=== PATIENT | male | born 1970 | race Caucasian/White ===

== ENCOUNTER → 2016-10-03 08:37 | Outpatient (CLI) | payer MEDICAID | END | disposition home or self-care (01) | LOC: D.MRI 08:37 → EDSEX 08:37 → D.MRI 09:00 | DX: R20.9 Unspecified disturbances of skin sensation (principal) ==

== ENCOUNTER 2017-10-21 11:20 | Outpatient (CLI) | payer MEDICAID ==
[~2017-10-21] VITALS: Ht 177.8 cm; Wt 95.9 kg
--- NOTE | ~2017-10-21 | HEMODYNAMI ---
PATIENT:MICKI LUZ MEDICAL RECORD: [id number] : 70 LOCATION:[facility] ADMISSION DATE: 10/21/17 Generatedon:10/21/201714:54 Patient name: MICKI LUZ Patient #: [id number] SSN: : 1970 Date of study: 10/21/2017 Page: Of Hemodynamic Procedure Report Patient Data Patient Demographics Procedure consent was obtained First Name: MICKI Gender: Male Last Name: NATTY : 1970 Patient #: [id number] Age: 47 year(s) Race: Unknown Additional ID: [id number] Contact details [address]: [address] [place] [address] State: [place] City: [place] Zip code: [address] Past Medical History Allergies Allergen Reaction Date Comments Reported Other allergy 10/21/2017 [facility] Admission Admission Data Admission Date: 10/21/2017 Admission Time: 11:20 Weight (lbs.): 218 Weight (kg.): 98.88 Lab Results Lab Result Date: 10/21/2017 Lab Result Time: 0:00 Biochemistry Name Units Result Min Max BUN mg/dl 12 --(-*--)-- 7 18 Creatinine mg/dl 1.1 --(--*-)-- 0.6 1.3 CBC Name Units Result Min Max Hemoglobin g/dl 15.3 --(-*--)-- 13.5 17.5 Procedure Procedure Types Cath Procedure Diagnostic Procedure LHC LHC w/Coronaries Procedure Description Procedure Date Procedure Date: 10/21/2017 Procedure Start Time: 14:41 Procedure End Time: 14:52 Procedure Staff Name Function Kristofer Das MD Performing Physician Miles Wilcox RT Machine Cementer And Folder Miracle Muñoz RT Monitor Nba Russell RN Nurse Monica Gold RT Scrub Procedure Data Cath Procedure Fluoroscopy Diagnostic fluoroscopy Total fluoroscopy Time: 1.6 time: 1.6 min min Diagnostic fluoroscopy Total fluoroscopy dose: 529 dose: 529 mGy mGy Contrast Material Contrast Material Type Amount (ml) Isovue 300 68 Entry Location Entry Primary Successful Side Size Upsize Upsize Entry Closure Succes sful Closure Location (Fr) 1 (Fr) 2 (Fr) Remarks Device Remarks Femoral Right 5 Fr Exoseal artery Estimated blood loss: 5 ml Diagnostic catheters Device Type Used For End Catheter Placement MULTIPACK JL 4.0 5Fr Procedure catheter MULTIPACK 3DRC 5Fr Procedure catheter MULTIPACK Pigtail 5 Fr Procedure catheter Procedure Complications No complications Procedure Medications Medication Administration Route Dosage 0.9% NaCl I.V. 100 ml/hr Oxygen etCO2 Nasal cannula 2 l/min Heparin Flush Bag added to field 2 bags (1000units/500ml NS) Lidocaine 2% added to field 20 Benadryl I.V. 50 mg Versed I.V. 2 mg Fentanyl I.V. 100 mcg Fentanyl I.V. 50 mcg Versed I.V. 1 mg Hemodynamics Rest HGB: 15.3 (g/dl) Heart Rate: 79 (bpm) Pressure Samples Time Site Value (mmHg) Purpose Heart Use Rate(bpm) 14:48 LV 134/-6,7 Snapshot 93 14:49 AO 133/89(108) Pullback 96 14:49 LV 149/-4,10 Pullback 96 Gradients Valve Time Site 1 Site 2 Mean SEP/DFP Peak To Heart Use (mmHg) (sec/min) Peak Rate (mmHg) (bpm) Aortic 14:49 LV AO 25 9 16 96 149/-4,10 133/89(108) Calculations Valve P-P Mean Valve Index Valve Source Name Gradient Area Flow (cm2) Aortic 16 25 16 25 Snapshots Pre Cath Intra NCS Post Cath Vital Signs Time Heart Resp SPO2 etCO2 NIBP (mmHg) Rhythm Pain Sedation Rate (ipm) (%) (mmHg) Status Level (bpm) 14:28:26 79 12 96 0 132/83(114) NSR 0 (11) 10(A) , No pain 14:33:08 86 15 95 0 132/87(115) NSR 0 (11) 10(A) , No pain 14:37:49 85 12 95 36.8 123/75(108) NSR 0 (11) 10(A) , No pain 14:42:30 88 19 95 31.5 120/82(113) NSR 0 (11) 10(A) , No pain 14:47:10 90 18 94 42 132/80(104) NSR 0 (11) 9(A) , No pain 14:51:53 95 14 95 0 129/88(119) NSR 0 (11) 9(A) , No pain Medications Time Medication Route Dose Verified Delivered Reason Notes Eff ectiveness by by 14:34:59 0.9% NaCl I.V. 100 Nba Nba Per ml/hr Lorigan Margiigan physician RN RN 14:35:13 Oxygen etCO2 2 Nba Nba Per Nasal l/min Loraarti Kiserigan physician cannula RN RN 14:35:26 Heparin Flush added 2 Nba Nba used for Bag to bags Lorigan Lorigan procedure (1000units/500ml field RN RN NS) 14:35:37 Lidocaine 2% added 20ml Nba Nba for local to vial Lorigan Lorigan anesthetic field RN RN 14:35:49 Benadryl I.V. 50 mg Nba Nba Per Lorigan Lorigan physician RN RN 14:37:41 Versed I.V. 2 mg Nba Nba for Lorigan Lorigan sedation RN RN 14:37:51 Fentanyl I.V. 100 Nba Nba for mcg Lorigan Lorigan sedation RN RN 14:39:39 Fentanyl I.V. 50 Nba Nba for mcg Lorigan Lorigan sedation RN RN 14:40:49 Versed I.V. 1 mg Nba Nba for Lorigan Lorigan sedation RN mend worker Log Time Note 14:17:23 Time tracking: Regular hours (M-F 7:00 - 5:00) 14:17:27 Plan of Care:Hemodynamics will remain stable., Cardiac rhythm will remain stable., Comfort level will be maintained., Respiratory function will remain adequate., Patient/ family verbilizes understanding of procedure., Procedure tolerated without complication., Recovers from procedure without complications.. 14:17:30 Miles Wilcox RT(R) sent for patient. Start room use. 14:23:54 Patient received from Pre/Post Procedure Room to CCL 1 Alert and oriented. Tansferred to table in Supine position. 14:23:56 Warm blankets applied, and camille hugger turned on for patient comfort. 14:23:56 Correct patient and procedure confirmed by team. 14:23:57 Signed procedure consent form obtained from patient. 14:23:58 ECG and BP/O2 sat monitors applied to patient. 14::32 Vital chart was started 14::32 Full Disclosure recording started 14:: Baseline sample Acquired. 14:: Rhythm: sinus rhythm 14:28:36 H&P Date Dictated: 10/16/2017 Within 30 days and on chart., H&P Addendum completed by physician on day of procedure. (MUST COMPLETE FOR ALL OUTPATIENTS). 14:28:37 Pre-procedure instructions explained to patient. 14:28:37 Pre-op teaching completed and patient verbalized understanding. 14:28:39 Family in patients room. 14:28:40 Patient NPO since Midnight. 14:28:53 Patient allergic to Other allergyCODEINE, PCN 14:28:57 Is the patient allergic to Iodine/contrast media? No. 14:28:58 Is patient on blood thinner?No 14:29:01 Patient diabetic? No. 14:29:05 Previous problem with sedation/anesthesia? No ? 14:29:06 Snore? Yes 14:29:07 Sleep apnea? No 14:29:08 Deviated septum? No 14:29:09 Opens mouth fully? Yes 14:29:11 Sticks out tongue? Yes 14:29:13 Airway obstruction? Yes COPD 14:29:19 Dentures? No ? 14:29:23 Pre procedure: right dorsailis pedis pulse 2+ Normal; easily identifiable; not easily obliterated 14:29:28 IV patent on arrival in left hand with 0.9% NaCl at O. 14:29:51 Lab Result : BUN 12 mg/dl 14:29:51 Lab Result : Hemoglobin 15.3 g/dl 14:29:51 Lab Result : Creatinine 1.1 mg/dl 14:29:54 Lab results completed and on chart. 14:29:56 Right groin area was prepped with chlora-prep and draped in sterile fashion 14::57 Alarms reviewed by R. N. 14:29:57 Sharps counted by scrub and verified by R.N. 14:30:00 Use device set Femoral Dx 14:30:00 ACIST Syringe (19217) opened to sterile field. 14:30:02 Bag Decanter (2002S) opened to sterile field. 14:30:03 ACIST Hand Control (78648) opened to sterile field. 14:30:04 ACIST Manifold (74346) opened to sterile field. 14:30:07 Tegaderm 4 x 4 (1626W) opened to sterile field. 14:30:08 Medline Cath Pack ([id number]) opened to sterile field. 14:30:08 DIAGNOSTIC WIRE .035 260cm J wire (758687) opened to sterile field. 14:30:09 DIAGNOSTIC Multipack 5Fr catheter set ([id number]) opened to sterile field. 14:30:10 SHEATH Prelude 5Fr 0.035 ([id number]-0I-73-035) opened to sterile field. 14:34:59 0.9% NaCl 100 ml/hr I.V. was administered by Nba Russell RN; Per physician; 14:35:13 Oxygen 2 l/min etCO2 Nasal cannula was administered by Nba Russell RN; Per physician; 14:35:26 Heparin Flush Bag (1000units/500ml NS) 2 bags added to field was administered by Nba Russell RN; used for procedure; 14:35:37 Lidocaine 2% 20ml vial added to field was administered by Nba Russell RN; for local anesthetic; 14:35:49 Benadryl 50 mg I.V. was administered by Nba Russell RN; Per physician; 14:36:40 Patient Weight : 218 lbs 14:37:11 --------ALL STOP TIME OUT------ 14:37:12 Final Timeout: patient, procedure, and site verified with staff and physician. All members of the team are in agreement. 14:37:14 Right groin site verified by team. 14:37:17 Physical assessment completed. ASA score P 2 - A patient with mild systemic disease as per Kristofer Das MD. 14:37:20 Sedation plan: IV Moderate Sedation Medication:Versed, Fentanyl 14:37:41 Versed 2 mg I.V. was administered by Nba Russell RN; for sedation; 14:37:51 Fentanyl 100 mcg I.V. was administered by Nba Russell RN; for sedation; 14:39:39 Fentanyl 50 mcg I.V. was administered by Nba Russell RN; for sedation; 14:40:49 Versed 1 mg I.V. was administered by Nba Russell RN; for sedation; 14:40:56 Zero performed for pressure channel P1 14:41:05 Zero performed for pressure channel P1 14:41:09 Zero performed for pressure channel P1 14:41:17 Procedure started. 14:41:28 Local anesthetic to right femoral artery with Lidocaine 2% by Kristofer Das MD.INITIAL ACCESS ONLY 14:42:30 A 5 Fr sheath was inserted into the Right Femoral artery 14:42:57 A MULTIPACK JL 4.0 5Fr catheter was advanced over the wire and used for Procedure. 14:45:21 LCA angiography performed. 14:45:25 Catheter exchanged over wire. 14:45:50 A MULTIPACK 3DRC 5Fr catheter was advanced over the wire and used for Procedure. 14:47:01 RCA angiography performed. 14:47:06 Catheter exchanged over wire. 14:47:35 A MULTIPACK Pigtail 5 Fr catheter was advanced over the wire and used for Procedure. 14:48:12 LV gram done using DELGADO 14:48:20 Injector settings: Ml/sec: 7, Volume: 15, 14:48:35 LV hemodynamics recorded. 14:48:59 EF : 60 % 14:49:36 Catheter removed. 14:49:48 EXOSEAL 5Fr (EX500) opened to sterile field. 14:50:24 Sheath removed intact; hemostasis achieved with Exoseal to the Right Femoral artery. 14:50:27 Procedure ended.(Physican Out) 14:50:59 Fluoroscopy time 01.60 minutes. 14:51:04 Fluoroscopy dose: 529 mGy 14:51:04 Flurop Dose total: 529 14:51:10 Contrast amount:Isovue 300 68ml. 14:51:12 Sharps counted by scrub and verified by R.N. 14:51:15 Post-op/insertion site Right Femoral artery dressed using a 4 x 4 and Tegaderm. 14:51:19 Post right femoral artery:stable, soft, clean and dry 14:51:23 Post-procedure physical assessment completed. ASA score P 2 - A patient with mild systemic disease as per Kristofer Das MD. 14:51:27 Post procedure rhythm: sinus rhythm 14:51:30 Estimated blood loss: 5 ml 14:51:32 Post procedure instruction explained to patient.Patient verbalizes understanding. 14:51:32 Patient needs reinforcement of post procedure teaching. 14:52:25 Procedure Complication : No complications 14:52:27 Vital chart was stopped 14:52:28 See physician's report for complete and final results. 14:52:30 Report given to Pre/Post Procedure Room. 14:52:32 Patient transfered to Pre/Post Procedure Room with Bed. 14:52:39 Procedure ended. 14:52:39 Full Disclosure recording stopped 14:52:44 End room use (Document Last) Device Usage Item Name Manufacture Quantity Catalog Number Hospital Part Current M inimal Lot# / Charge Number Stock Stock Serial# Code ACIST Syringe Acist 1 27190 [id number] 684165 029993 2 0 (95225) Medical Systems [facility] Bag Decanter Microtek 1 2001S 635444 74233 638557 5 (2001S) Medical Inc. ACIST Hand Acist 1 71900 440918 582309 205557 5 Control (72612) Medical Systems Inc ACIST Manifold Acist 1 96399 427494 729478 895302 5 (02091) Medical Systems Inc Tegaderm 4 x 4 3M 1 1626W 950075 540860 606551 5 (1626W) Medline Cath Cardinal 1 [id number] 385003 39964 808169 5 [facility] Health ([id number]) DIAGNOSTIC WIRE [facility] [place] 1 347672 985238 422715 617155 3 0 .035 260cm J wire (136021) DIAGNOSTIC Cardinal 1 BV2294 475353 43302 391905 3 0 Multipack 5Fr Health catheter set ([id number]) SHEATH Prelude Merit 1 [id number]-9S-49-035 370881 188372 007186 5 5Fr 0.035 Medical (ZCA-2R-61-035) MULTIPACK JL Cardinal 1 [id number] 5 4.0 5Fr Health catheter MULTIPACK 3DRC Cardinal 1 866374 5 5Fr catheter Health MULTIPACK Cardinal 1 082124 5 Pigtail 5 Fr Health catheter EXOSEAL 5Fr Cardinal 1 EX500 031118 346147 368983 1 0 (EX500) Health Signature Audit [place] Stage Time Signature Unsigned Intra-Procedure 10/21/2017 Miracle Muñoz 2:54:19 PM RT(R) Signatures Monitor : Miracle Wanda Signature : RT Date : Time : [place] [id number] [place] [place] [address]
[2017-10-21] MEDS ORDERED: CELEXA20 MG PO (12:20)
[2017-10-21] MEDS ORDERED: SYMBICORT 16010.2 GM INH (12:20)
[2017-10-21] MEDS ORDERED: OMEPRAZOLE20 M1 PO (12:20)
[2017-10-21] MEDS ORDERED: ANORO ELLIPTA1 EACH INH (12:20)
[2017-10-21] MEDS ORDERED: NAPROSYN500 MG PO (12:21)
[2017-10-21 12:32] VITALS: BP 141/98; Ht 177.8 cm; Wt 95.9 kg
[2017-10-21 12:45] LABS: EOSINOPHILS 3.4 % (0-7); HEMATOCRIT 43.6 % (42.0-54.0); HEMOGLOBIN 15.3 g/dL (13.5-17.5); IMMATURE GRANULOCYTES 0.3 % (0-5); LYMPHOCYTES 28.1 % (15-50); MCHC 35.1 g/dL (31.0-37.0); MEAN PLATELET VOLUME 9.7 fL (7.4-10.4); MONOCYTES 7.7 % (2-11); NEUTROPHILS 59.5 % (40-80); PLATELET COUNT 347 10x3/uL (130-400); RBC 4.64 10x6/uL (4.20-6.10); RDW 12.4 % (11.5-14.5); WBC 7.6 10x3/uL (4.8-10.8)
[2017-10-21 12:56] LABS: CALC OSMOLALITY 271 mosm/kg (275-300); CALCIUM 9.5 mg/dL (8.5-10.1); CARBON DIOXIDE 29.4 mmol/L (21.0-32.0); CHLORIDE - SERUM 100 mmol/L (98-107); CREATININE - SERUM 1.1 mg/dL (0.6-1.3); GLUCOSE 94 mg/dL (74-106); POTASSIUM - SERUM 4.4 mmol/L (3.5-5.1); SODIUM 136 mmol/L (136-145); UREA NITROGEN 12 mg/dL (7-18); eGFR NON AFRICAN AMERICAN 76 mL/min (90-120)
== END 2017-10-21 17:05 | disposition home or self-care (01) ==
LOC: D.CATH 11:20
PROVIDERS: Internal Medicine Cardiovascular Disease
DX: R07.89 Other chest pain (principal); I25.10 Atherosclerotic heart disease of native coronary artery without angina pectoris; Z01.812 Encounter for preprocedural laboratory examination

== ENCOUNTER → 2018-06-10 07:53 | Outpatient (CLI) | payer MEDICAID ==
[2017-10-21 12:32] VITALS: BMI 30.3
[~2018-06-10 07:53] MED LIST: ANORO ELLIPTA1 EACH INH; CELEXA20 MG PO; COMBIVENT RESPIM4 GM INH; FLOMAX0.4 MG PO; IBUPROFEN800 MG PO; NAPROSYN500 MG PO; OMEPRAZOLE20 M1 PO; SPIRIVA18 MCG INH; SYMBICORT 16010.2 GM INH; ULTRAM50 MG PO
== END | disposition home or self-care (01) ==
LOC: D.HCCARDIO 07:53
PROVIDERS: ATTEND Internal Medicine Cardiovascular Disease
DX: I25.10 Atherosclerotic heart disease of native coronary artery without angina pectoris (principal)

== ENCOUNTER 2018-07-09 07:07 | Outpatient (CLI) | payer MEDICAID ==
[~2018-07-09] VITALS: Ht 177.8 cm; Wt 103.6 kg
--- NOTE | ~2018-07-09 | HEMODYNAMI ---
PATIENT:MICKI LUZ MEDICAL RECORD: [id number] : 70 LOCATION:[facility] ADMISSION DATE: 07/09/18 Generatedon:07/09/201810:02 Patient name: MICKI ULZ Patient #: [id number] SSN: : 1970 Date of study: 07/09/2018 Page: Of Hemodynamic Procedure Report Patient Data Patient Demographics Procedure consent was obtained First Name: MICKI Gender: Male Last Name: NATTY : 1970 Middle Initial: CRIS Age: 48 year(s) Patient #: [id number] Race: Unknown Additional ID: [id number] Contact details Address: [address] [place] [address] State: [place] City: [place] Zip code: [address] Past Medical History Allergies Allergen Reaction Date Comments Reported Other allergy 10/21/2017 CODEINE, PCN Penicillins 07/09/2018 Codeine 07/09/2018 Admission Admission Data Admission Date: 07/09/2018 Admission Time: 7:07 Procedure Procedure Types Cath Procedure Diagnostic Procedure LHC LHC w/Coronaries Procedure Description Procedure Date Procedure Date: 07/09/2018 Procedure Start Time: 9:49 Procedure End Time: 10:01 Procedure Staff Name Function Kristofer Das MD Performing Physician Monica Gold RT Monitor Toña Sage RT Scrub Sondra Parks RN Nurse Procedure Data Cath Procedure Fluoroscopy Diagnostic fluoroscopy Total fluoroscopy Time: 1.6 time: 1.6 min min Diagnostic fluoroscopy Total fluoroscopy dose: 429 dose: 429 mGy mGy Contrast Material Contrast Material Type Amount (ml) Isovue 300 63 Entry Location Entry Primary Successful Side Size Upsize Upsize Entry Closure Succes sful Closure Location (Fr) 1 (Fr) 2 (Fr) Remarks Device Remarks Femoral Right 5 Fr Exoseal artery Estimated blood loss: 5 ml Diagnostic catheters Device Type Used For End Catheter Placement MULTIPACK JL 4.0 5Fr Left Coronary catheter Angiography MULTIPACK 3DRC 5Fr Right Coronary catheter Angiography MULTIPACK Pigtail 5 Fr LV Angiography catheter Procedure Complications No complications Procedure Medications Medication Administration Route Dosage Oxygen etCO2 Nasal cannula 2 l/min Lidocaine 2% added to field 20 Heparin Flush Bag added to field 2 bags (1000units/500ml NS) 0.9% NaCl I.V. 100 ml/hr Versed I.V. 2 mg Fentanyl I.V. 100 mcg Fentanyl I.V. 50 mcg Fentanyl I.V. 50 mcg Hemodynamics Rest Heart Rate: 76 (bpm) Pressure Samples Time Site Value (mmHg) Purpose Heart Use Rate(bpm) 9:56 LV 130/-4,9 EDP 90 9:57 AO 117/75(93) Pullback 88 9:57 LV 135/-6,11 Pullback 88 Gradients Valve Time Site 1 Site 2 Mean SEP/DFP Peak To Heart Use (mmHg) (sec/min) Peak Rate (mmHg) (bpm) Aortic 9:57 LV AO 11 21 18 88 135/-6,11 117/75(93) Calculations Valve P-P Mean Valve Index Valve Source Name Gradient Area Flow (cm2) Aortic 18 11 18 11 Snapshots Pre Cath Intra NCS Post Cath Vital Signs Time Heart Resp SPO2 etCO2 NIBP (mmHg) Rhythm Pain Sedation Rate (ipm) (%) (mmHg) Status Level (bpm) 9:38:37 74 13 98 35.9 136/92(122) NSR 0 (11) 10(A) , No pain 9:42:47 76 13 97 36.7 126/86(109) NSR 0 (11) 10(A) , No pain 9:47:01 77 12 98 41.2 121/83(101) NSR 0 (11) 10(A) , No pain 9:51:09 85 12 96 41.2 130/86(112) NSR 0 (11) 9(A) , No pain 9:55:18 89 15 97 44.2 140/102(117) NSR 0 (11) 9(A) , No pain 9:59:32 89 10 97 48.7 134/96(115) NSR 0 (11) 10(A) , No pain Medications Time Medication Route Dose Verified Delivered Reason Notes Effe ctiveness by by 9:43:19 Oxygen etCO2 2 Kristofer Buffie used for Nasal l/min Thiago Parks asl interpreter cannula 9:43:30 Lidocaine 2% added 20ml Kristofer Kristofer for local to vial Thiago Das MD anesthetic field 9:43:36 Heparin Flush added 2 Kristofer Kristofer used for Bag to bags Thiago Das MD procedure (1000units/500ml field NS) 9:43:45 0.9% NaCl I.V. 100 Kristofer Buffie Per ml/hr Thiago Parks RN physician 9:47:24 Versed I.V. 2 mg Kristofer Buffie for Thiago Parks RN sedation 9:47:30 Fentanyl I.V. 100 Kristofer Buffie for mcg Thiago Parks RN sedation 9:51:44 Fentanyl I.V. 50 Kristofer Buffie for mcg Thiago Parks RN sedation 9:56:43 Fentanyl I.V. 50 Kristofer Buffie for mcg Thiago Parks RN sedation Procedure Log Time Note 9:22:34 Diagnostic Cath Status : Elective 9:22:53 Toña Sage RT(R) sent for patient. Start room use. 9:22:54 Time tracking: Regular hours (M-F 7:00 - 5:00) 9:22:59 Plan of Care:Hemodynamics will remain stable., Cardiac rhythm will remain stable., Comfort level will be maintained., Respiratory function will remain adequate., Patient/ family verbilizes understanding of procedure., Procedure tolerated without complication., Recovers from procedure without complications.. 9:37:24 Patient received from Pre/Post Procedure Room to CCL 1 Alert and oriented. Tansferred to table in Supine position. 9:37:24 Warm blankets applied, and camille hugger turned on for patient comfort. 9:37:25 Correct patient and procedure confirmed by team. 9:37:26 Signed procedure consent form obtained from patient. 9:37:27 ECG and BP/O2 sat monitors applied to patient. 9:37:28 Vital chart was started 9:37:29 Full Disclosure recording started 9:38:23 Rhythm: sinus rhythm 9:38:45 H&P Date Dictated: 06/24/2018 Within 30 days and on chart., H&P Addendum completed by physician on day of procedure. (MUST COMPLETE FOR ALL OUTPATIENTS). 9:38:46 Pre-procedure instructions explained to patient. 9:38:46 Pre-op teaching completed and patient verbalized understanding. 9:38:49 Family in patients room. 9:38:50 Patient NPO since Midnight. 9:38:57 Patient allergic to Penicillins 9:39:01 Patient allergic to Codeine 9:39:03 Is the patient allergic to Iodine/contrast media? No. 9:39:04 Is patient on blood thinner?No 9:39:06 Patient diabetic? No. 9:39:10 Previous problem with sedation/anesthesia? No ? 9:39:11 Snore? Yes 9:39:12 Sleep apnea? No 9:39:14 Deviated septum? No 9:39:14 Opens mouth fully? Yes 9:39:15 Sticks out tongue? Yes 9:39:20 Airway obstruction? Yes COPD 9:39:22 Dentures? No ? 9:40:40 Pre procedure: right dorsailis pedis pulse 2+ Normal; easily identifiable; not easily obliterated 9:40:42 Patient pain scale 0/10 ?. 9:40:48 IV patent on arrival in left forearm with 0.9% NaCl at KVO. 9:40:51 Lab results completed and on chart. 9:40:54 Right groin area was prepped with chlora-prep and draped in sterile fashion 9:40:55 Alarms reviewed by R. N. 9:40:56 Sharps counted by scrub and verified by R.N. 9:41:02 Use device set Femoral Dx 9:41:03 ACIST Syringe (55401) opened to sterile field. 9:41:03 Bag Decanter (2002S) opened to sterile field. 9:41:03 Medline Cath Pack ([id number]) opened to sterile field. 9:41:04 DIAGNOSTIC WIRE .035 260cm J wire (036552) opened to sterile field. 9:41:05 ACIST Hand Control (76410) opened to sterile field. 9:41:06 ACIST Manifold (06504) opened to sterile field. 9:41:06 DIAGNOSTIC Multipack 5Fr catheter set ([id number]) opened to sterile field. 9:41:07 Tegaderm 4 x 4 (1626W) opened to sterile field. 9:41:08 SHEATH 5FR [place] (SSA470) opened to sterile field. 9:42:35 Baseline sample Acquired. 9:42:40 Final Timeout: patient, procedure, and site verified with staff and physician. All members of the team are in agreement. 9:42:41 Right groin site verified by team. 9:42:44 Maximum allowable Isovue 300 dose 300ml. Physician notified. (300ml for normal creatinines. For patients with creatinine of 1.7 or higher multiply weight(kg) x 5 divided by creatinine.) 9:42:48 Fire Safety Assessment: A--An alcohol-based skin anteseptic being used preoperatively., C--Open oxygen or nitrous oxide is being used., D--An ESU, laser, or fiber-optic light is being used. 9:42:52 Physical assessment completed. ASA score P 2 - A patient with mild systemic disease as per Kristofer Das MD. 9:42:54 Sedation plan: IV Moderate Sedation Medication:Versed, Fentanyl 9:43:19 Oxygen 2 l/min etCO2 Nasal cannula was administered by Sondra Parks RN; used for procedure; 9:43:30 Lidocaine 2% 20ml vial added to field was administered by Kristofer Das MD; for local anesthetic; 9:43:36 Heparin Flush Bag (1000units/500ml NS) 2 bags added to field was administered by Kristofer Das MD; used for procedure; 9:43:45 0.9% NaCl 100 ml/hr I.V. was administered by Sondra Parks RN; Per physician; 9:45:41 Zero performed for pressure channel P1 9:45:50 Zero performed for pressure channel P1 9:45:53 Zero performed for pressure channel P1 9:45:56 Zero performed for pressure channel P1 9:47:24 Versed 2 mg I.V. was administered by Sondra Parks RN; for sedation; 9:47:30 Fentanyl 100 mcg I.V. was administered by Sondra Parks RN; for sedation; 9:49:39 Procedure started. 9:49:42 Local anesthetic to right femoral artery with Lidocaine 2% by Kristofer Das MD.INITIAL ACCESS ONLY 9:50:32 A 5 Fr sheath was inserted into the Right Femoral artery 9:51:09 A MULTIPACK JL 4.0 5Fr catheter was advanced over the wire and used for Left Coronary Angiography. 9:51:44 Fentanyl 50 mcg I.V. was administered by Sondra Parks RN; for sedation; 9:53:10 Catheter removed. 9:53:40 A MULTIPACK 3DRC 5Fr catheter was advanced over the wire and used for Right Coronary Angiography. 9:55:25 Catheter removed. 9:56:34 A MULTIPACK Pigtail 5 Fr catheter was advanced over the wire and used for LV Angiography. 9:56:43 Fentanyl 50 mcg I.V. was administered by Sondra Parks RN; for sedation; 9:57:05 LV gram done using DELGADO 9:57:08 LV hemodynamics recorded. 9:57:11 Injector settings: Ml/sec: 5, Volume: 15, 9:57:22 EF : 55 % 9:57:35 Catheter removed. 9:57:37 EXOSEAL 5Fr (EX500) opened to sterile field. 9:57:51 Sheath removed intact; hemostasis achieved with Exoseal to the Right Femoral artery. 9:57:53 Procedure ended.(Physican Out) 9:58:12 Fluoroscopy time 01.60 minutes. 9:58:15 Flurop Dose total: 429 9:58:15 Fluoroscopy dose: 429 mGy 9:58:20 Contrast amount:Isovue 300 63ml. 9:58:21 Sharps counted by scrub and verified by R.N. 9:58:23 Insertion/operative site no bleeding no hematoma. 9:58:25 Post-op/insertion site Right Femoral artery dressed using a 4 x 4 and Tegaderm. 9:58:28 Post right femoral artery:stable, clean and dry 9:58:31 Post Procedure Pulses reassessed and unchanged 9:58:36 Post-procedure physical assessment completed. ASA score P 2 - A patient with mild systemic disease as per Kristofer Das MD. 9:58:38 Post procedure rhythm: unchanged. 9:58:41 Estimated blood loss: 5 ml 9:58:42 Post procedure instruction explained to patient.Patient verbalizes understanding. 9:58:42 Patient needs reinforcement of post procedure teaching. 9:58:49 Procedure Complication : No complications 9:58:51 Vital chart was stopped 9:58:54 See physician's report for complete and final results. 9:59:56 Report given to Pre/Post Procedure Room. 10:01:33 Patient transfered to Pre/Post Procedure Room with Stretcher. 10:01:44 Procedure ended. 10:01:44 Full Disclosure recording stopped 10:01:48 End room use (Document Last) Device Usage Item Name Manufacture Quantity Catalog Hospital Part Current Minimal L ot# / Number Charge Number Stock Stock Serial# Code ACIST Acist 1 61865 066829 558862 200310 20 Syringe Medical (17539) Systems Inc Bag Microtek 1 2001S 841428 22504 226165 5 Decanter Medical Inc. () Medline Medline 1 [id number] 077397 34242 740471 5 Cath Pack ([id number]) DIAGNOSTIC [place] 1 343088 362159 140927 212749 30 WIRE .035 260cm J wire (307733) ACIST Hand Acist 1 19253 392624 901651 715979 5 Control Medical (07243) Systems Inc ACIST Acist 1 38669 722514 114667 968478 5 Manifold Medical (53020) Systems Inc DIAGNOSTIC Cardinal 1 [id number] 122747 61131 588317 30 Multipack Health 5Fr catheter set (AA0500) Tegaderm 4 3M 1 1626W 440575 983903 988935 5 x 4 (1626W) SHEATH 5FR Terumo 1 [id number] 137280 682074 143975 5 [place] (DRQ322) MULTIPACK Cardinal 1 181403 5 JL 4.0 5Fr Health catheter MULTIPACK Cardinal 1 237977 5 3DRC 5Fr Health catheter MULTIPACK Cardinal 1 035813 5 Pigtail 5 Health Fr catheter EXOSEAL 5Fr Cardinal 1 EX500 767053 569165 071143 10 (EX500) Health Signature Audit [place] Stage Time Signature Unsigned Intra-Procedure 07/09/2018 Monica 10:01:59 AM Counts RT(R) Signatures Monitor : Monica Signature : Counts RT Date : Time : [facility] [address] [facility] [place] [address]
[~2018-07-09 07:07] MED LIST changes: -COMBIVENT RESPIM4 GM INH; -FLOMAX0.4 MG PO; -IBUPROFEN800 MG PO; -SPIRIVA18 MCG INH; -ULTRAM50 MG PO
[2018-07-09] MEDS ORDERED: FLOMAX0.4 MG PO (07:30)
[2018-07-09] MEDS ORDERED: ULTRAM50 MG PO (07:31)
[2018-07-09 07:37] VITALS: BP 144/88; Ht 177.8 cm; Wt 103.6 kg
[2018-07-09 08:02] LABS: BASOPHILS 0.9 % (0-2); HEMATOCRIT 44.5 % (42.0-54.0); HEMOGLOBIN 15.3 g/dL (13.5-17.5); IMMATURE GRANULOCYTES 0.2 % (0-5); LYMPHOCYTES 32.3 % (15-50); MCHC 34.4 g/dL (31.0-37.0); MCV 90.3 fL (80.0-100.0); MEAN PLATELET VOLUME 9.3 fL (7.4-10.4); MONOCYTES 9.1 % (2-11); NEUTROPHILS 54.5 % (40-80); PLATELET COUNT 336 10x3/uL (130-400); RBC 4.93 10x6/uL (4.20-6.10); RDW 13.3 % (11.5-14.5)
[2018-07-09 08:10] LABS: CALC OSMOLALITY 270 mosm/kg (275-300); CALCIUM 9.4 mg/dL (8.5-10.1); CARBON DIOXIDE 24.7 mmol/L (21.0-32.0); CHLORIDE - SERUM 102 mmol/L (98-107); CREATININE - SERUM 1.1 mg/dL (0.6-1.3); GLUCOSE 97 mg/dL (74-106); POTASSIUM - SERUM 4.1 mmol/L (3.5-5.1); SODIUM 135 mmol/L (136-145); UREA NITROGEN 14 mg/dL (7-18); eGFR NON AFRICAN AMERICAN 76 mL/min (90-120)
--- NOTE | 2018-07-09 10:16 | NUR ---
RECIEVED TO ROOM VIA STRETCHER FROM DIRECTOR AUDIENCE MARKETING WITH 5 FR EXOSEAL R/GROIN CDI NO BLEEDING OR HEMATOMA NOTED. HR 77 BP 127/85 CHEST PAIN IS DENIED. INSTRUCTED PATIENT TO KEEP HEAD FLAT ON PILLOW WITH RLE STRAIGHT
--- NOTE | 2018-07-09 10:27 | NUR ---
5 FR EXOSEAL R/GROIN CDI NO BLEEDING OR HEMATOMA NOTED. PATIENT DENIED CHEST PAIN TOLERATING SIPS OF WATER WITH NAUSEA DENIED
--- NOTE | 2018-07-09 10:55 | NUR ---
5 FR EXOSEAL R/GROIN IS CDI WITH CHEST PAIN DENIED. SANDWICH AND SODA TO BEDSIDE WITH TO ASSIST. VSS
--- NOTE | 2018-07-09 12:01 | NUR ---
5 FR EXOSEAL R/GROIN IS CDI WITH CHEST PAIN DENIED. REPOSITIONED TO SITTING WITH HOB UP 45 FOR COMFORT. PIV REMOVED WITH DRESSING APPLIED. PATIENT UP TO GET DRESSED FOR DISCHARGE HOME
--- NOTE | 2018-07-09 12:14 | NUR ---
VERBAL AND WRITTEN DISCHARGE GONE OVER WITH PATIENT AND FAMILY. 5 FR EXOSEAL R/GROIN IS CDI WITH CHEST PAIN DENIED
--- NOTE | 2018-07-09 12:15 | NUR ---
PATIENT LEFT VIA WC TO PARKING FOR TRANSPORT HOME CHEST PAIN DENIED
== END 2018-07-09 12:16 | disposition home or self-care (01) ==
LOC: D.CATH 07:07
PROVIDERS: ATTEND Internal Medicine Cardiovascular Disease
DX: I25.119 Atherosclerotic heart disease of native coronary artery with unspecified angina pectoris (principal); Z01.812 Encounter for preprocedural laboratory examination

== ENCOUNTER 2018-08-21 06:16 | Day surgery (SDC) | payer MEDICAID ==
[2018-08-19 10:33] LABS: HEMATOCRIT 43.2 % (42.0-54.0); MCH 31.2 pg (26.0-34.0); MCHC 34.7 g/dL (31.0-37.0); MCV 89.8 fL (80.0-100.0); MEAN PLATELET VOLUME 8.6 fL (7.4-10.4); RBC 4.81 10x6/uL (4.20-6.10); RDW 12.8 % (11.5-14.5); WBC 7.4 10x3/uL (4.8-10.8)
[~2018-08-21] VITALS: Ht 177.8 cm; Wt 108.0 kg
[~2018-08-21 06:16] MED LIST changes: +FLOMAX0.4 MG PO; +IBUPROFEN800 MG PO; +ULTRAM50 MG PO
[2018-08-21] MEDS ORDERED: SPIRIVA18 MCG INH (08:31)
[2018-08-21] MEDS ORDERED: COMBIVENT RESPIM4 GM INH (08:32)
[2018-08-21 08:45] VITALS: BP 129/83; Ht 177.8 cm; Wt 108.0 kg
--- NOTE | 2018-08-21 09:03 | NUR ---
0900 NURSE OCCUPATIONAL THERAPY ASST, NEETA, NOTIFIED OF PT'S RESPONSE TO HAVING MADE AN ATTEMPT IN HIS LIFETIME TO END HIS LIFE. WAITING FOR BEHAVIORAL ASSESSMENT TO BE DONE BY PSYCHIATRIC NURSE. PT UNDER OBSERVATION.
--- NOTE | 2018-08-21 09:17 | NUR ---
9545 PSYCH NURSE HERE TO EVALUATE PATIENT FOR SUICIDE RISK
--- NOTE | 2018-08-21 09:36 | NUR ---
DR. PINON NOTIFIED AND REVIEWED PT'S BEHAVIOR AND ASSESSMENT RESULTS. PT IS A LOW RISK PER DR. PINON. DR. PINON STATED TO GIVE RESOURCES TO PT AT THE TIME OF DISCHARGE. NO FURTHER ORDERS AT THIS TIME. RESOURCES REVIEWED WITH PT AND HE VERBALIZIED UNDERSTANDING.
--- NOTE | 2018-08-21 10:47 | NUR ---
REC'D FROM RR. FAMILY AT BEDSIDE. RELATES HE NEEDS TO VOID. URINAL BROUGHT TO PATIENT. DRINK GIVEN TO PT.
--- NOTE | 2018-08-21 11:20 | NUR ---
LIANNA GUZMAN BROUGHT TO PATIENT. C/O PAIN. EXPLAINED WOULD HAVE TO CALL DR FOX BECAUSE HE DOES NOT ROUTINELY ORDER PAIN MEDICATION FOR THIS PROCEDURE.
--- NOTE | 2018-08-21 11:27 | NUR ---
NORCO 7.5MG PO ADMINSTERED PER ORDERS FROM JERRY FOX.
--- NOTE | 2018-08-21 11:30 | OP ---
PATIENT NAME: MICKI LUZ MEDICAL RECORD: [id number] :70 LOCATION:D.[facility] ADMISSION DATE: SURGEON: ALICE FOX MD DATE OF OPERATION: 08/21/2018 SURGEON: Alice Fox MD ANESTHESIA: TIVA by Megan Sheppard CRNA. DIAGNOSES: Urge urinary incontinence, obstructive BPH. VANE is 40 grams. Postvoid residual is 17 mL. IPSS is 28 and quality of life score is 6. PROCEDURE: UroLift times 4 in box configuration. FINDINGS: Obstructive bladder neck. Trabeculated bladder without tumors. Single ureteral orifices bilaterally. BLOOD LOSS: None. CLINICAL HISTORY: This is a 48-year-old male, who has obstructive BPH symptoms, which are primarily manifested by urge urinary incontinence and urinary frequency every 1 hour during the day and with nocturia times 5-7. He has been put on Flomax, but it is not helping. It is affecting his memory, though. He has a family history of BPH. There is no history of prostate cancer. On digital rectal examination, he has a 40 gram prostate. He comes today to have the UroLift procedure done. HE IS ALLERGIC TO CODEINE AND PENICILLIN. He was given Levaquin IV general merchandise salesperson to the OR. DESCRIPTION OF PROCEDURE: The patient was given IV sedation. He was then placed into the lithotomy position and prepped and draped. The UroLift scope was introduced. The obstruction is primarily at the bladder neck. The rest of the lateral lobes are not obstructive. Going into the bladder, he has a moderately trabeculated bladder. No bladder tumors were seen. There were single ureteral orifices on each side. We then placed 4 UroLift units in a box configuration near the bladder neck. These were all placed at 1.5 cm distal to the bladder neck. The anterior pair was placed at the anterolateral sulcus of the bladder neck. One unit was placed on each side. Then, we placed another 2 units at the mid urethral level. This opened the bladder neck quite widely. The bladder was left partly full for voiding trial. I will see him in followup in 1 months' time. TRANSINT:[id number] Voice Confirmation ID: [id number] DOCUMENT ID: [id number] ALICE FOX MD at 1130 CC: [id number] DICTATION DATE: 08/21/18 1041 CRITICAL CARE CLINICAL NURSE SPECIALIST: 08/21/18 1129 [facility] [address] [place] [address]
--- NOTE | 2018-08-21 12:00 | NUR ---
TOLERATED DIET. AMBULATED TO BATHROOM AND RELATES IT FEELS BETTER SITTING UP THAN LAYING IN THE BED.
--- NOTE | 2018-08-21 12:10 | NUR ---
IV DC'D WITH CATHETER INTACT. WRITTEN AND VERBAL DC INST. GIVEN TO PATIENT. VERBALIZED UNDERSTANDING.
--- NOTE | 2018-08-21 12:25 | NUR ---
DC'D HOME WITH FAMILY VIA PRIVATE VEHICLE. STABLE AT TIME OF DC.
== END 2018-08-21 12:25 | disposition home or self-care (01) ==
LOC: D.OPS 06:16 → D.PAN 08:30 → D.OPS 08:30
PROVIDERS: Anesthesiology; ATTEND Urology
DX: N40.1 Benign prostatic hyperplasia with lower urinary tract symptoms (principal); N13.8 Other obstructive and reflux uropathy; N32.89 Other specified disorders of bladder; N39.41 Urge incontinence; Z01.812 Encounter for preprocedural laboratory examination

== ENCOUNTER → 2018-08-26 16:15 | Outpatient (CLI) | payer MEDICAID ==
[2018-08-21 08:45] VITALS: BMI 34.2
[~2018-08-26 16:15] MED LIST changes: +COMBIVENT RESPIM4 GM INH; +SPIRIVA18 MCG INH
== END | disposition home or self-care (01) ==
LOC: D.LABREF 16:15
PROVIDERS: ATTEND Urology
DX: D72.829 Elevated white blood cell count, unspecified (principal); R31.9 Hematuria, unspecified; R39.15 Urgency of urination

== ENCOUNTER → 2018-09-24 18:31 | Outpatient (CLI) | payer MEDICAID ==
[2018-08-21 08:45] VITALS: BMI 34.2
== END | disposition home or self-care (01) ==
LOC: D.LABREF 18:31
PROVIDERS: ATTEND Urology
DX: D72.829 Elevated white blood cell count, unspecified (principal)

== ENCOUNTER 2020-07-01 07:00 | Day surgery (SDC) | payer SELFPAY ==
[~2020-07-01] VITALS: Ht 175.3 cm; Wt 92.5 kg
[2020-07-01 07:44] LABS: CALC OSMOLALITY 279 mosm/kg (275-300); CARBON DIOXIDE 26.5 mmol/L (21.0-32.0); CHLORIDE - SERUM 102 mmol/L (98-107); GLUCOSE 118 mg/dL (74-106); POTASSIUM - SERUM 4.6 mmol/L (3.5-5.1); SODIUM 139 mmol/L (136-145); UREA NITROGEN 16 mg/dL (7-18); eGFR NON AFRICAN AMERICAN 84 mL/min (90-120)
[2020-07-01 08:04] LABS: BASOPHILS 0.4 % (0-2); HEMATOCRIT 43.8 % (42.0-54.0); HEMOGLOBIN 14.5 g/dL (13.5-17.5); IMMATURE GRANULOCYTES 0.2 % (0-5); LYMPHOCYTE ABS# 2.13 10x3/uL (1.32-3.57); LYMPHOCYTES 15.6 % (15-50); MCH 30.9 pg (26.0-34.0); MCHC 33.1 g/dL (31.0-37.0); MCV 93.4 fL (80.0-100.0); MEAN PLATELET VOLUME 9.8 fL (7.4-10.4); MONOCYTES 6.8 % (2-11); NEUTROPHIL ABS# 10.26 10x3/uL (1.78-5.38); PLATELET COUNT 355 10x3/uL (130-400); RBC 4.69 10x6/uL (4.20-6.10); RDW 13.3 % (11.5-14.5); WBC 13.7 10x3/uL (4.8-10.8)
[2020-07-01 08:38] VITALS: BP 129/82; Ht 175.3 cm; Wt 92.5 kg
--- NOTE | 2020-07-01 09:40 | NUR ---
0935 BLOCK ON LEFT SHOULDER COMPLETED BY PUJA DEL ANGEL. PT ON BNC 2L/MIN. 0940 B/P 105/66 HR 84 R 16 O2 SAT 97% ON 2L BNC. PT STATES LEFT ARM FEELS NUMB.
--- NOTE | 2020-07-01 13:15 | NUR ---
RIGHT HAND PIV DC'D WITH TIP INTACT. PATIENT DRESSES IN PERSONAL CLOTHING. DISCHARGE INSTRUCTIONS REVIEWED WITH PATIENT AND SPOUSE. DISCHARGED HOME VIA WHEELCHAIR TO PRIVATE VEHICLE WITH SPOUSE
--- NOTE | 2020-07-04 08:34 | OP ---
PATIENT NAME: MICKI LUZ MEDICAL RECORD: [id number] :70 [facility] AD[facility] DATE: SURGEON: ARAM BOBO DO DATE OF OPERATION: 07/01/2020 PROCEDURE PERFORMED: Left shoulder arthroscopy with subacromial decompression, distal clavicle excision, labral debridement and biceps tenodesis. PREOPERATIVE DIAGNOSES: Left shoulder superior labrum anterior and posterior tear, acromioclavicular joint arthritis, type 2 acromion and a possible rotator cuff tear seen on MRI. POSTOPERATIVE DIAGNOSES: Left shoulder superior labrum anterior and posterior tear, acromioclavicular joint arthritis, type 2 acromion and a possible rotator cuff tear seen on MRI. INDICATIONS: Mr. Luz is a 50-year-old male that had an MRI showing the above findings. I have warned him of the risks of this including infection, bleeding, damage to nerve or vessels, need for further surgery, continued pain, frozen shoulder syndrome, cosmetic deformity of the biceps, continued pain, retear of rotator cuff and even and he signed a consent. SURGEON: Aram Bobo DO DESCRIPTION OF PROCEDURE: The patient was taken to the operative suite, after getting a block by anesthesia laid in the right lateral decubitus position with the left shoulder up, given 900 mg of clindamycin, sedated and LMA was placed. I then inserted the 18-gauge spinal needle through the posterior portal site, into the joint itself and inflated it with 60 mL of normal saline. I then established a posterior portal with an 11-blade scalpel. Trocar was then brought in and then I established an anterior portal with 18-gauge spinal needle and 11-blade scalpel. I saw a type 3 SLAP tear in the superior portion of the labrum. The rest of the joint looked good. I did not see a supraspinatus, infraspinatus or subscapularis tear on the articular side. I then brought in a burner through the anterior portal and did a biceps tenotomy. I then went to the subacromial space, established a lateral portal with 18-gauge spinal needle and 11-blade scalpel, brought in the shaver and ablator 3-in-1 instrument and did a subacromial decompression. He had a very large spur on the acromion that I removed with a bur and smoothing that off and then through the anterior portal, opened up the AC joint as the acromion and clavicle were touching, opened it up to approximately 7-mm. I then performed a bursectomy and inspected the bursal side of the rotator cuff and did not see a rotator cuff tear on the bursal side either. I then removed the instruments, went to the anterior humerus, made a small incision, dissected carefully out of the long head of the biceps tendon just under the pectoralis tendon and put in the unicortical hole and a 2.7 JuggerLoc loop stitch and looped the tendon through it, cinched it down to the humerus after pulling tension. I then cut the excess suture from the loop and tied it back through with a free needle, the tendon and tied it down and cut excess tendon and suture. I then irrigated. Navarro Castillo, certified nursing assistant then closed the site with 2-0 Vicryl in inverted interrupted fashion, 4-0 Monocryl ran on the skin and 4-0 Monocryl inverted interrupted fashion on the portal sites of the shoulder. I then covered in Dermabond glue, Telfa and Tegaderm. He was awakened, put in a sling, taken to recovery in stable condition. I also did a labral debridement while I was in the shoulder joint with the coag function. As the labrum was severely OPERATIVE REPORT [id number] MICKI LUZ torn, debrided it back to a stable point. He was awakened and taken to recovery in stable condition. BLOOD LOSS: Minimal. COMPLICATIONS: None. TRANSINT:[id number] Voice Confirmation ID: [id number] DOCUMENT ID: [id number] ARAM BOBO DO at 0834 CC: [id number] DICTATION DATE: 07/01/20 1140 DELPHI DEVELOPER: 07/01/20 1529 [facility] 07/01/20 [facility] [address] [place] [id number]
== END 2020-07-01 13:15 | disposition home or self-care (01) ==
LOC: D.OPS 07:00
PROVIDERS: Anesthesiology; ATTEND Orthopaedic Surgery
DX: M13.812 Other specified arthritis, left shoulder (principal); S43.432A Superior glenoid labrum lesion of left shoulder, initial encounter; X58.XXXA Exposure to other specified factors, initial encounter; M25.511 Pain in right shoulder; J45.909 Unspecified asthma, uncomplicated; M75.22 Bicipital tendinitis, left shoulder